=== PATIENT | male | born 1960 | race Caucasian/White ===

== ENCOUNTER 2021-06-17 14:00 | Outpatient (RCR) | payer OTHER | END 2021-06-18 | LOC: PT 14:00 | PROVIDERS: ATTEND Family Medicine | DX: G70.00 Myasthenia gravis without (acute) exacerbation (principal); R29.898 Other symptoms and signs involving the musculoskeletal system ==

== ENCOUNTER 2021-07-17 13:58 | Outpatient (RCR) | payer OTHER | END 2021-07-18 | LOC: PT 13:58 | PROVIDERS: ATTEND Family Medicine | DX: G70.00 Myasthenia gravis without (acute) exacerbation (principal); R29.898 Other symptoms and signs involving the musculoskeletal system ==

== ENCOUNTER 2021-07-24 14:31 | Inpatient (IN) | payer OTHER ==
[~2021-07-24] VITALS: Ht 175.3 cm; Wt 113.4 kg
[2021-07-24] MEDS ORDERED: SODIUM CHLORIDE 0.9% 500ML 500 ML IV ONE (14:45)
[2021-07-24] MEDS: FAMOTIDINE 20 MG/2 ML VIAL IV SCH (15:00)
[2021-07-24] MEDS: SODIUM CHLORIDE 0.9% 1000ML 1,000 ML IV SCH (15:00)
[2021-07-24 15:10] LABS: BASOPHILS # (AUTO) 0.1 (0.0-0.1); EOSINOPHILS # (AUTO) 0.1 (0.0-0.4); EOSINOPHILS % 1.2 % (0.0-6.0); HEMOGLOBIN 15.3 g/dL (14.0-18.0); LYMPHOCYTES # (AUTO) 2.5 (1.0-3.2); LYMPHOCYTES % 31.4 % (18.0-39.1); MEAN CORPUSCULAR HEMOGLOBIN 29.9 pg (28-32); MEAN CORPUSCULAR HGB CONC 31.2 g/dL (31-35); MEAN CORPUSCULAR VOLUME 95.9 fL (81-99); MONOCYTES # (AUTO) 0.8 (0.2-0.8); NEUTROPHILS # (AUTO) 4.4 (2.1-6.9); NEUTROPHILS % 54.3 % (38.7-80.0); PLATELET COUNT 179 x10e3/uL (140-360); RED BLOOD COUNT 5.11 x10e6/uL (4.3-5.7); RED CELL DISTRIBUTION WIDTH 15.3 % (11.7-14.4)
[2021-07-24 15:26] LABS: ALANINE AMINOTRANSFERASE 38 IU/L (0-55); ALBUMIN 3.1 g/dL (3.5-5.0); ALBUMIN/GLOBULIN RATIO 0.8 (0.8-2.0); ALKALINE PHOSPHATASE 46 IU/L (40-150); ANION GAP 10.9 mmol/L (8-16); BLOOD UREA NITROGEN 21 mg/dL (7-26); BUN/CREATININE RATIO 15 (6-25); CALCIUM 8.8 mg/dL (8.4-10.2); CARBON DIOXIDE 29 mmol/L (22-29); CHLORIDE 111 mmol/L (98-107); CREATINE KINASE 469 IU/L (30-200); CREATININE, SERUM 1.37 mg/dL (0.72-1.25); EST GLOMERULAR FILTRATION RATE 53 ML/MIN (60-); GLUCOSE 103 mg/dL (74-118); MAGNESIUM 2.1 MG/DL (1.3-2.1); POTASSIUM 3.9 mmol/L (3.5-5.1); SODIUM 147 mmol/L (136-145)
[2021-07-24 16:02] LABS: INR 0.97; PROTHROMBIN TIME 13.8 seconds (11.9-14.5)
[2021-07-24 16:03] LABS: PARTIAL THROMBOPLASTIN TIME 24.3 seconds (23.8-35.5)
[2021-07-24] MEDS ORDERED: ONDANSETRON HCL INJ 2MG/ML 2ML 2 MG/ML VIAL IV PRN ×2 (16:15→21:00)
[2021-07-24] MEDS ORDERED: SPIRONOLACTONE25 MG PO (16:46)
[2021-07-24] MEDS ORDERED: CRESTOR10 MG PO (16:46)
[2021-07-24] MEDS ORDERED: QUETIAPINE FUMA25 MG PO (16:46)
[2021-07-24] MEDS ORDERED: ELIQUIS5 MG PO (16:46)
[2021-07-24] MEDS ORDERED: PREDNISONE10 MG PO (16:46)
[2021-07-24] MEDS ORDERED: PANTOPRAZOLE SO40 MG PO (16:46)
[2021-07-24] MEDS ORDERED: METOPROLOL SUCC50 MG PO (16:46)
[2021-07-24] MEDS ORDERED: MESTINON60 MG PO (16:46)
[2021-07-24] MEDS ORDERED: LOSARTAN POTASS25 MG PO (16:46)
[2021-07-24 20:00] VITALS: BP 142/99
[2021-07-24 21:00] VITALS: BP 146/98
[2021-07-24] MEDS: PYRIDOSTIGMINE BROMIDE 60 MG TAB PO SCH (21:00)
[2021-07-24] MEDS: QUETIAPINE FUMARATE 25 MG TAB PO SCH (21:00)
[2021-07-24] MEDS ORDERED: DOCUSATE SODIUM 100 MG CAP PO PRN (21:00)
[2021-07-24 21:47] VITALS: BP 148/105
[2021-07-24] MEDS ORDERED: FUROSEMIDE40 MG PO (22:27)
[2021-07-24] MEDS ORDERED: VITAMIN D250 MCG PO (22:27)
[2021-07-24] MEDS ORDERED: PROAIR HFA INH8.5 GM (22:57)
[2021-07-25 01:01] VITALS: BP 123/87
[2021-07-25 05:33] LABS: BASOPHILS # (AUTO) 0.1 (0.0-0.1); EOSINOPHILS # (AUTO) 0.2 (0.0-0.4); HEMATOCRIT 46.1 % (38.2-49.6); HEMOGLOBIN 14.5 g/dL (14.0-18.0); LYMPHOCYTES # (AUTO) 1.8 (1.0-3.2); LYMPHOCYTES % 20.7 % (18.0-39.1); MEAN CORPUSCULAR HGB CONC 31.5 g/dL (31-35); MEAN CORPUSCULAR VOLUME 95.4 fL (81-99); MONOCYTES # (AUTO) 0.9 (0.2-0.8); MONOCYTES % 9.9 % (4.4-11.3); NEUTROPHILS # (AUTO) 5.7 (2.1-6.9); NEUTROPHILS % 65.1 % (38.7-80.0); PLATELET COUNT 146 x10e3/uL (140-360); RED BLOOD COUNT 4.83 x10e6/uL (4.3-5.7); RED CELL DISTRIBUTION WIDTH 15.1 % (11.7-14.4)
[2021-07-25 05:52] VITALS: BP 141/81
[2021-07-25 05:55] LABS: CHOL/HDL RATIO 3.7 (3.9-4.7)
[2021-07-25 06:02] LABS: ALBUMIN 2.9 g/dL (3.5-5.0); ANION GAP 9.2 mmol/L (8-16); CALCIUM 8.3 mg/dL (8.4-10.2); CREATININE, SERUM 1.03 mg/dL (0.72-1.25); POTASSIUM 4.2 mmol/L (3.5-5.1)
[2021-07-25] MEDS: FAMOTIDINE 20 MG/2 ML VIAL IV SCH ×2 (06:28→18:00)
[2021-07-25] MEDS: SODIUM CHLORIDE 0.9% 1000ML 1,000 ML IV SCH ×3 (06:28→21:19)
[2021-07-25 06:34] LABS: CREATINE KINASE MB 0.7 ng/mL (0-5.0)
[2021-07-25 07:50] VITALS: BP 122/93
[2021-07-25] MEDS: METOPROLOL SUCCINATE 50 MG TAB XL PO SCH (11:08)
[2021-07-25] MEDS: LOSARTAN POTASSIUM 25 MG TAB PO SCH (11:08)
[2021-07-25] MEDS: PYRIDOSTIGMINE BROMIDE 60 MG TAB PO SCH ×4 (11:08→21:14)
[2021-07-25] MEDS: SIMVASTATIN 20 MG TAB PO SCH (11:13)
[2021-07-25 11:34] VITALS: BP 133/85
[2021-07-25 14:29] LABS: CREATINE KINASE MB 0.8 ng/mL (0-5.0)
[2021-07-25 15:36] VITALS: BP 135/96
[2021-07-25 20:00] VITALS: BP 139/98
[2021-07-25] MEDS: QUETIAPINE FUMARATE 25 MG TAB PO SCH (21:14)
[2021-07-26 00:37] VITALS: BP 143/96
[2021-07-26 04:37] VITALS: BP 116/84
[2021-07-26] MEDS: FAMOTIDINE 20 MG/2 ML VIAL IV SCH ×2 (05:13→17:08)
[2021-07-26 08:00] VITALS: BP 144/87
[2021-07-26 08:02] VITALS: BP 144/87
[2021-07-26] MEDS: LOSARTAN POTASSIUM 25 MG TAB PO SCH (09:00)
[2021-07-26] MEDS: METOPROLOL SUCCINATE 50 MG TAB XL PO SCH (09:00)
[2021-07-26] MEDS: SIMVASTATIN 20 MG TAB PO SCH (09:01)
[2021-07-26] MEDS: PYRIDOSTIGMINE BROMIDE 60 MG TAB PO SCH ×3 (09:05→17:08)
[2021-07-26 11:28] VITALS: BP 135/85
[2021-07-26 16:30] VITALS: BP 140/90
[2021-07-26] MEDS ORDERED: FUROSEMIDE INJ 10 MG/ML 4 ML VIAL IV ONE (18:00)
[2021-07-26] MEDS ORDERED: ASPIRIN EC81 MG PO (18:17)
== END 2021-07-26 18:40 | disposition home or self-care (01) | DRG 312 ==
LOC: ER 14:38 → ERHOLD 16:13 → MED/SURG 20:35 → OBSVTOIN 07-25 08:39
PROVIDERS: ADMIT Internal Medicine; ATTEND Internal Medicine
DX: I95.1 Orthostatic hypotension (principal); I48.20 Chronic atrial fibrillation, unspecified; N17.9 Acute kidney failure, unspecified; J81.1 Chronic pulmonary edema; Z79.01 Long term (current) use of anticoagulants; E66.9 Obesity, unspecified; Z68.36 Body mass index [BMI] 36.0-36.9, adult; G70.00 Myasthenia gravis without (acute) exacerbation; G47.33 Obstructive sleep apnea (adult) (pediatric); E11.9 Type 2 diabetes mellitus without complications; Z86.73 Personal history of transient ischemic attack (TIA), and cerebral infarction without residual deficits; I44.7 Left bundle-branch block, unspecified; I11.0 Hypertensive heart disease with heart failure; I50.9 Heart failure, unspecified; Z20.822 Contact with and (suspected) exposure to COVID-19; W18.09XA Striking against other object with subsequent fall, initial encounter; S00.81XA Abrasion of other part of head, initial encounter
CPT/HCPCS: 36415; 70450; 71045; 72125; 80053; 80061; 82550; 82553; 83036; 83735; 83880; 84484; 85025; 85610; 85730; 93005; 93306; 93880; 94799; 99284; G0378; J1940; J7030; J7040; U0002

== ENCOUNTER 2021-08-12 14:00 | Outpatient (RCR) | payer OTHER ==
[~2021-08-12 14:00] MED LIST: ASPIRIN EC81 MG PO; CRESTOR10 MG PO; ELIQUIS5 MG PO; FUROSEMIDE40 MG PO; LOSARTAN POTASS25 MG PO; MESTINON60 MG PO; METOPROLOL SUCC50 MG PO; PANTOPRAZOLE SO40 MG PO; PREDNISONE10 MG PO; PROAIR HFA INH8.5 GM; QUETIAPINE FUMA25 MG PO; SPIRONOLACTONE25 MG PO; VITAMIN D250 MCG PO
== END 2021-08-18 ==
LOC: PT 14:00
PROVIDERS: ATTEND Family Medicine
DX: G70.00 Myasthenia gravis without (acute) exacerbation (principal); R29.898 Other symptoms and signs involving the musculoskeletal system; Z91.81 History of falling
CPT/HCPCS: 97139

== ENCOUNTER 2021-08-21 13:49 | Outpatient (RCR) | payer OTHER | END 2021-09-17 | LOC: PT 13:49 | PROVIDERS: ATTEND Family Medicine | DX: G70.00 Myasthenia gravis without (acute) exacerbation (principal); R29.898 Other symptoms and signs involving the musculoskeletal system | CPT/HCPCS: 97139 ==